=== PATIENT | male | born 1975 ===

== ENCOUNTER 2020-07-14 23:43 | Emergency (ER) | payer SELFPAY ==
[~2020-07-14] VITALS: Ht 167.6 cm; Wt 77.3 kg
[2020-07-14 23:46] VITALS: Ht 167.6 cm; Wt 77.3 kg
[2020-07-15 00:50] VITALS: BP 112/70
== END 2020-07-15 00:50 | disposition home or self-care (01) ==
LOC: D.ER 23:43
DX: S01.112A Laceration without foreign body of left eyelid and periocular area, initial encounter (principal); Y04.2XXA Assault by strike against or bumped into by another person, initial encounter; Y93.9 Activity, unspecified; Y92.9 Unspecified place or not applicable